=== PATIENT | male | born 1995 | race Caucasian/White ===

== ENCOUNTER 2018-06-02 03:45 | Emergency (ER) | payer BC ==
[~2018-06-02] VITALS: Ht 188 cm; Wt 88.5 kg
[2018-06-02 03:48] VITALS: TEMP 36.6; Ht 188 cm; Wt 88.5 kg
[2018-06-02] MEDS ORDERED: KETOROLAC TROMETHAMINE 60 MG/2 ML VIAL IM STA (04:07)
[2018-06-02] MEDS ORDERED: ACETAMINOPHEN 500 MG TAB PO STA (04:07)
[2018-06-02 05:20] VITALS: BP 122/70; PULSE 78; O2SAT 98
--- NOTE | 2018-06-02 07:30 | EMERGENCY ROOM VISIT NOTE ---
History First contact with patient: 03:52 Chief Complaint: SHOULDER PAIN Stated Complaint: SHOULDER PAIN ON LEFT History of Present Illness The patient is a 22 year old male who presents to the Emergency Room with complaints of left shoulder pain that is slowly worsening over the past 7 or 8 hours. The patient just returned to [facility] to attend [facility]. He states that he is out of shape and attempted to go to the gym earlier this morning, roughly 16 hours ago. The patient did primarily upper body work, and felt well after the workout. The patient has had very slow but progressively worsening pain in his left shoulder ever since. He did take some aspirin at home which did not significant help his symptoms. Tonight his pain was roughly a 6/10 and he did put heat on it, which worsened the discomfort. He does not have numbness or paresthesias. He was unable to sleep because of the pain, prompting his presentation. Review of Systems More than 10 systems were reviewed and otherwise negative with the exception of history of present illness. Past Medical/Surgical History No chronic medical disease Family History No pertinent family history Social History Smoking Status: Never Smoker Physical Exam Vital Signs Date Time Temp Pulse Resp B/P (MAP) Pulse Ox O2 Delivery O2 Flow Rate FiO2 06/02/18 05:20 78 20 122/70 98 06/02/18 03:48 36.6 80 18 147/83 96 Room Air Physical Exam VITALS: Vitals are noted on the nurse's note and reviewed by myself. Vital signs stable. GENERAL: Well-developed, well-nourished, white male, who is in no acute distress and resting comfortably. Patient is cooperative with the examination. HEAD: Normocephalic atraumatic. NECK: Supple without nuchal rigidity. No lymphadenopathy. No thyromegaly. Cervical spine is nontender. HEART: Regular rate and rhythm without murmurs gallops or rubs. LUNGS: Clear to auscultation bilaterally without wheezes, rales or rhonchi. No retractions or accessory muscle use. MUSCULOSKELETAL: There is notable spasm over the left scapula that is tender on palpation. The patient has full range of motion throughout the left shoulder, although he reports increased discomfort with abduction and elevation above the head. No tenderness to the distal end of the left upper extremity. No humeral tenderness. No clavicular tenderness. Medical Decision & Procedures Medications Administered Medications (Trade) Dose Ordered Sig/Twan Route Start Time Stop Time Status Last Admin Dose Admin Ketorolac Tromethamine (Toradol Inj) 60 mg NOW STAT IM 06/02/18 04:07 06/02/18 04:08 DC 06/02/18 04:15 60 MG Acetaminophen (Tylenol Tab) 1,000 mg NOW STAT PO 06/02/18 04:07 06/02/18 04:08 DC 06/02/18 04:15 1,000 MG ED Course Sickle cell trait physical exam and history were performed. Nursing notes, EMR, and Medication List were personally reviewed. Patient appears to have worsening pain to his left shoulder over the past several hours. He did go to the gym today, and this may have exacerbated his pain. The patient was given IM Toradol and oral Tylenol for comfort. Ice packs were applied and he was placed in a sling. X-ray was performed and reviewed by myself and my attending is showing no acute process. On reevaluation the patient did feel improved. I suspect his symptoms are related to the large spasm he has in the left scapula as well as overusing the joint upon returning to the gym. The patient will be treated conservatively with over -the-counter analgesics and rest. He is to follow with his primary care physician or S with any ongoing or persisting symptoms. The chart was completed utilizing [employer] Voice Recognition Software. Grammatical errors, random word insertions, pronoun errors, and incomplete sentences are an occasional consequence of this system due to software limitations, ambient noise, and hardware issues. Any formal questions or concerns about the content, text, or information contained within the body of this dictation should be directly addressed to the provider for clarification. . Medical Decision Differential diagnosis includes, but is not limited to: Sprain, strain, fracture , dislocation, subluxation, contusion, and others Impression Primary Impression: Left shoulder pain Departure Information Dispostion Home / Self-Care Condition GOOD Forms HOME CARE DOCUMENTATION FORM, School Instructions, Additional Instructions: Patient was seen and evaluated today in the emergency department fo medical care. Return to class on 06/03/2018. Please excuse. IMPORTANT VISIT INFORMATION Patient Instructions [facility], ED RICE Additional Instructions You were seen and evaluated today on an emergency basis only. This is not a substitute for, or an effort to provide, complete comprehensive medical care. It is not possible to recognize and treat all injuries or illnesses in a single emergency department visit. For this reason it is recommended that you followup with your primary care physician/[facility] with any ongoing or persisting symptoms. For baseline pain relief you may alternate ibuprofen and acetaminophen every 4 hours for pain control. Take 600 mg ibuprofen (Advil) and then 4 hours later take 1000 mg acetaminophen (Tylenol). Do not take more than 3000 mg acetaminophen in a single day. You are welcome to return to the emergency department anytime with new, worsening, or concerning symptoms. School Instructions Additional School Instructions: Patient was seen and evaluated today in the emergency department for medical care. Return to class on 06/03/2018. Please excuse.
--- NOTE | 2018-06-02 08:45 | DIAGNOSTIC IMAGING REPORT ---
L SHOULDER MIN 2 VIEWS ROUTINE CLINICAL HISTORY: 22 years-old Male presenting with Left shoulder. TECHNIQUE: Internal rotation, external rotation, Grashey views of the left shoulder were obtained. COMPARISON: None. FINDINGS: Glenohumeral and acromioclavicular joints congruent. No widening of the acromioclavicular joint. No acute fracture or malalignment. No advanced degenerative change. No radiographic soft tissue abnormality. IMPRESSION: No acute osseous injury. Electronically signed by: Ishaan Bai M.D. 06/02/2018 8:44 AM Dictated Date/Time: 06/02/2018 7:39 AM
== END 2018-06-02 05:22 | disposition home or self-care (01) ==
LOC: C.EDB 03:47 → C.EDA 05:22
DX: M25.512 Pain in left shoulder (principal)